=== PATIENT | male | born 1980 | race Caucasian/White ===

== ENCOUNTER 2019-05-03 16:20 | Emergency (ER) | payer BC ==
[2019-05-03 18:48] VITALS: TEMP 97.8
[2019-05-03 20:16] VITALS: BP 122/68; O2SAT 97
== END 2019-05-03 20:25 | disposition home or self-care (01) ==
LOC: ER 16:20
DX: R07.9 Chest pain, unspecified (principal); Q89.3 Situs inversus; E87.6 Hypokalemia; Z79.899 Other long term (current) drug therapy
CPT/HCPCS: 36415; 71045; 80048; 80076; 80307; 81001; 82550; 82553; 84484; 85025; 85379; 85610; 85730; 93005; J2060